=== PATIENT | male | born 1940 | race African-American/Black ===

== ENCOUNTER 2017-02-27 09:18 | Day surgery (SDC) | payer MEDICARE ==
[2017-02-26 16:55] VITALS: BP 136/72
[2017-02-26 16:56] LABS: HEMATOCRIT 40.1 % (42-54); MEAN CORPUSCULAR HEMOGLOBIN 31.1 pg (27.0-33.0); MEAN CORPUSCULAR HGB CONC 33.8 g/dL (32.0-36.0); PLATELET COUNT (AUTO) 217 K/uL (130-400); RED BLOOD CELL COUNT(AUTO) 4.36 MIL/uL (4.50-6.20); RED CELL DISTRIBUTION WIDTH 13.7 % (11.0-15.5)
[2017-02-26 17:03] LABS: APPEARANCE,URINE Clear (CLEAR); BILIRUBIN,URINE Negative (NEGATIVE); COLOR,URINE Dark Yellow (YELLOW); GLUCOSE, URINE (UA) Negative (NEGATIVE); KETONES,URINE Negative (NEGATIVE); LEUKOCYTE ESTERASE ,URINE Negative (NEGATIVE); NITRATE,URINE Negative (NEGATIVE); OCCULT BLOOD,URINE Moderate (NEGATIVE); PROTEIN,URINE Negative (NEGATIVE)
[2017-02-26 17:08] LABS: CREATININE 1.1 mg/dL (0.5-1.5); POTASSIUM 3.8 mmol/L (3.5-5.1)
[2017-02-26 17:10] LABS: PARTIAL THROMBOPLASTIN TIME 29.6 SEC (26.3-35.5); PROTHROMBIN TIME 10.5 SEC (9.6-11.6)
[2017-02-26 18:08] LABS: BACTERIA,URINE Few /HPF (None Seen); WBC,URINE 0-1 /HPF (0-1)
[2017-02-26 18:09] LABS: MUCUS,URINE Few LPF (None Seen); SQUAMOUS EPITHELIAL CELL,UR Few /LPF (0-2)
[~2017-02-27] VITALS: Ht 168.9 cm; Wt 117.9 kg
[2017-02-27] VITALS (20 sets, daily range): BP systolic 80–151; BP diastolic 51–90
[~2017-02-27 09:18] MED LIST: BIMA12.5OS OU; CEFAZOLIN SODIUM 1 GM VIAL IVP ONE; CYAN100022 SL; CYAN1000I IM; METO-391 PO; QUIN40TA19 PO; TAMS0.4C32 PO; THIA100T75 PO
[2017-02-27] MEDS ORDERED: WATER FOR INJECTION,STERILE 20 ML VIAL ONE (11:22)
[2017-02-27] MEDS ORDERED: LACTATED RINGERS 1000ML 1,000 ML IV ONE (11:22)
[2017-02-27] MEDS ORDERED: PROPOFOL 10 MG/ML 20ML VIAL IV ONE (11:58)
[2017-02-27] MEDS ORDERED: MIDAZOLAM HCL 1 MG/ML 2ML VIAL ONE (11:58)
[2017-02-27] MEDS ORDERED: FENTANYL CITRATE PF 50 MCG/1 ML 2ML VIAL ONE (11:58)
[2017-02-27] MEDS: CEFAZOLIN SODIUM 1 GM VIAL ONE ×2 (12:02→12:30)
[2017-02-27] MEDS ORDERED: ISOVUE-370 50ML VIAL IV ONE (12:14)
[2017-02-27] MEDS ORDERED: PHENYLEPHRINE HCL 10 MG/ML 1ML VIAL IV ONE (13:18)
[2017-02-27] MEDS ORDERED: ONDANSETRON HCL 4 MG/2 ML VIAL ONE (13:18)
[2017-02-27] MEDS ORDERED: NEOSTIGMINE METHYLSULFATE 1MG/ML IV ONE (13:18)
[2017-02-27] MEDS ORDERED: GLYCOPYRROLATE 0.2 MG/ML 5 ML VIAL ONE (13:18)
[2017-02-27] MEDS ORDERED: ROCURONIUM BROMIDE 10MG/1ML 5ML VL ONE (13:18)
[2017-02-27] MEDS ORDERED: DEXAMETHASONE SOD PHOSPHATE 10MG/ML 1ML VIAL ONE (13:18)
== END 2017-02-27 16:55 | disposition home or self-care (01) ==
LOC: DAH 09:18 → SUH 09:18
PROVIDERS: ATTEND Urology
DX: N13.2 Hydronephrosis with renal and ureteral calculous obstruction (principal); I10 Essential (primary) hypertension; E66.01 Morbid (severe) obesity due to excess calories; N40.0 Benign prostatic hyperplasia without lower urinary tract symptoms; Z90.49 Acquired absence of other specified parts of digestive tract; Z96.649 Presence of unspecified artificial hip joint; Z87.442 Personal history of urinary calculi; Z85.46 Personal history of malignant neoplasm of prostate; Z98.890 Other specified postprocedural states
CPT/HCPCS: 36415; 52332; 52351; 74420; 80048; 81001; 85027; 85610; 85730; 87088 ×2; 93005; A4344; A4354; A4358; A4600; A5113; C1758 ×2; C1769 ×2; C2617; J0690; J1100; J2250; J2370; J2405; J2704; J2710; J3010; J3490 ×2; J7030; J7120; Q9967

== ENCOUNTER → 2017-03-23 | Outpatient (CLI) | payer MEDICARE ==
[~2017-03-23] MED LIST changes: -CEFAZOLIN SODIUM 1 GM VIAL IVP ONE
[2017-03-23 14:38] LABS: CREATININE 1.1 mg/dL (0.5-1.5)
== END | disposition home or self-care (01) ==
LOC: LAB 13:29
PROVIDERS: ATTEND Urology
DX: N20.0 Calculus of kidney (principal)
CPT/HCPCS: 36415; 82565; 84520

== ENCOUNTER → 2017-03-24 | Outpatient (CLI) | payer MEDICARE ==
[~2017-03-24] MED LIST changes: +IOPAMIDOL-370 100 ML VIAL IV ONE
== END | disposition home or self-care (01) ==
LOC: RAH 08:54
PROVIDERS: ATTEND Urology
DX: N20.0 Calculus of kidney (principal); R93.41 Abnormal radiologic findings on diagnostic imaging of renal pelvis, ureter, or bladder
CPT/HCPCS: 74400; Q9967

== ENCOUNTER → 2019-05-23 | Outpatient (CLI) | payer MEDICARE ==
[~2019-05-23] MED LIST changes: -IOPAMIDOL-370 100 ML VIAL IV ONE
== END | disposition home or self-care (01) ==
LOC: OIH 11:20
PROVIDERS: ATTEND Internal Medicine
DX: M79.605 Pain in left leg (principal)
CPT/HCPCS: 73552

== ENCOUNTER → 2021-07-03 | Outpatient (CLI) | payer MEDICARE | END | disposition home or self-care (01) | LOC: RAH 12:36 | PROVIDERS: ATTEND Urology | DX: I71.4 Abdominal aortic aneurysm, without rupture (principal); I72.3 Aneurysm of iliac artery; K57.90 Diverticulosis of intestine, part unspecified, without perforation or abscess without bleeding; K43.9 Ventral hernia without obstruction or gangrene; N28.1 Cyst of kidney, acquired; N32.89 Other specified disorders of bladder; N40.0 Benign prostatic hyperplasia without lower urinary tract symptoms; M47.815 Spondylosis without myelopathy or radiculopathy, thoracolumbar region; Z90.49 Acquired absence of other specified parts of digestive tract | CPT/HCPCS: 74176 ==

== ENCOUNTER → 2024-12-20 | Outpatient (CLI) | payer MEDICARE ==
[~2024-12-20] MED LIST changes: -QUIN40TA19 PO; +QUIN40TA37 PO
--- NOTE | 2024-12-20 14:34 | HMCIMG ---
EXAM: CT Abdomen and Pelvis Without IV contrast CLINICAL HISTORY: Right upper quadrant pain, Abdominal aortic aneurysm, without rupture TECHNIQUE: Axial computed tomography images of the abdomen and pelvis without intravenous contrast. CONTRAST: No IV contrast. COMPARISON: None provided. FINDINGS: LUNG BASES: The lung bases appear clear. No pleural effusions are seen. LIVER: A few hypodense areas are present in the right lobe of the liver, the largest measuring 1.6 cm. Suggested ultrasound correlation. GALLBLADDER AND BILE DUCTS: Post-cholecytectomy status. No biliary ductal dilatation is evident. PANCREAS: Unremarkable. SPLEEN: Unremarkable. ADRENAL GLANDS: Unremarkable. KIDNEYS, URETERS, AND BLADDER: A few hypodense areas are present in both kidneys, the largest measuring 1.3 x 1.2 cm in the left kidney. Suggested ultrasound correlation. There is no hydronephrosis or hydroureter. No urinary calculi are seen. STOMACH AND BOWEL: Colonic diverticulosis without diverticulitis. Unremarkable appearance of the stomach and small bowel. No evidence of bowel obstruction. No evidence suggesting enteritis or colitis. 1.8 cm-sized umbilical defect with omental fat herniation. APPENDIX: No evidence of acute appendicitis on CT examination. PERITONEUM: No free fluid. No free air. LYMPH NODES: No lymphadenopathy is evident. REPRODUCTIVE: Unremarkable as visualized. VASCULATURE: The infra-renal abdominal aorta appears dilated, measuring 2.7 x 3.5 cm for a length of 4.5 cm, extending up to the proximal aspect of the right common iliac artery measuring 2.6 cm. Atherosclerotic changes in the form of eccentric vessel wall calcification in the abdominal aorta and its major branches. BONES: Post-laminectomy status in L4and L5 vertebrae. Degenerative changes in the visualized spine in the form of marginal osteophytes, reduced disc spaces, vacuum phenomenon, and degenerative discs at multiple lumbar levels. No aggressive appearing osseous lesion. No acute osseous pathology evident. IMPRESSION: 1. Infrarenal abdominal aortic aneurysm measuring 2.7 x 3.5 cm for a length of 4.5 cm, extending to the proximal right common iliac artery. If clinically warranted CT angiography may be obtained for further evaluation. 2. Hypodense foci within the liver and kidneys may reflect cysts; however, these would be better characterized with ultrasound correlation. 3. 1.8 cm umbilical hernia containing omental fat. 4. Colonic diverticulosis without diverticulitis. /[place]
== END | disposition home or self-care (01) ==
LOC: RAH 12:15
PROVIDERS: ATTEND Internal Medicine
DX: K57.30 Diverticulosis of large intestine without perforation or abscess without bleeding (principal); I71.43 Infrarenal abdominal aortic aneurysm, without rupture; K42.9 Umbilical hernia without obstruction or gangrene; M51.369 Other intervertebral disc degeneration, lumbar region without mention of lumbar back pain or lower extremity pain; R10.11 Right upper quadrant pain
CPT/HCPCS: 74176